=== PATIENT | male | born 1950 | race Two or more races ===

== ENCOUNTER 2023-04-30 21:43 | Inpatient (IN) | payer MEDICAID ==
[~2023-04-30] VITALS: Ht 172.7 cm; Wt 73.5 kg
[2023-04-30 23:29] LABS: BASOPHILS % (AUTO) 0.1 % (0.0-2.0); EOSINOPHILS # (AUTO) 0.1 K/uL (0.0-0.7); EOSINOPHILS % (AUTO) 0.4 % (0.0-6.0); HEMATOCRIT 36 % (39-51); LYMPHOCYTES # (AUTO) 0.8 K/uL (0.8-4.8); LYMPHOCYTES % (AUTO) 6.5 % (20.0-44.0); MEAN CORPUSCULAR HEMOGLOBIN 29 PG (26.0-33.0); MEAN CORPUSCULAR HGB CONC 33 g/dl (31.0-36.0); MEAN CORPUSCULAR VOLUME 86 fL (80-96); MONOCYTES # (AUTO) 1.1 K/uL (0.1-1.30); MONOCYTES % (AUTO) 8.9 % (2.0-12.0); NEUTROPHILS # (AUTO) 10.6 K/uL (1.8-8.9); NEUTROPHILS % (AUTO) 84.1 % (43.0-81.0); PLATELET COUNT (AUTO) 187 K/uL (150-450); RED BLOOD CELL COUNT(AUTO) 4.18 MIL/uL (4.5-6.0); RED CELL DISTRIBUTION WIDTH 14.2 % (11.5-15.0); WHITE BLOOD COUNT (AUTO) 12.6 K/uL (4.3-11.0)
[2023-04-30 23:30] LABS: APPEARANCE,URINE CLOUDY (CLEAR); BILIRUBIN,URINE NEGATIVE (NEGATIVE); BLOOD, URINE 2+ Ery/uL (NEGATIVE); COLOR,URINE YELLOW (YELLOW); KETONES,URINE 1+ mg/dL (NEGATIVE); LEUKOCYTE ESTERASE ,URINE 2+ (NEGATIVE); NITRITE, URINE POSITIVE (NEGATIVE); PROTEIN,URINE 2+ mg/dl (NEGATIVE); UGLUCOSE 2+ mg/dL (NEGATIVE)
[2023-04-30 23:48] LABS: ALANINE AMINOTRANSFERASE 17 U/L (12-78); ALKALINE PHOSPHATASE 96 U/L (46-116); ASPARTATE AMINOTRANSFERASE 7 U/L (15-37); BILIRUBIN,DIRECT 0.2 mg/dL (0.0-0.2); BILIRUBIN,TOTAL 0.8 mg/dL (0.2-1.0); CARBON DIOXIDE 28 mmol/L (21-32); CHLORIDE 96 mmol/L (98-107); CREATININE 0.9 mg/dL (0.6-1.3); GLUCOSE 307 mg/dL (74-106); POTASSIUM 3.7 mmol/L (3.5-5.1); SODIUM SERUM 131 mmol/L (136-145); TOTAL PROTEIN, SERUM 6.9 g/dL (6.4-8.2); UREA NITROGEN, BLOOD 8 mg/dL (7-18)
[2023-05-01] MEDS ORDERED: ASPIRIN 325 MG TABLET ONE (00:15)
[2023-05-01] MEDS ORDERED: CEFTRIAXONE 1GM BAG (ER ONLY) 50 ML IV ONE (00:15)
[2023-05-01] MEDS: CEFTRIAXONE 1GM BAG (ER ONLY) 1 GM/50 ML PIGGYBACK IV ONE (00:16)
[2023-05-01] MEDS: ASPIRIN 325 MG TABLET PO ONE (00:16)
[2023-05-01 00:21] LABS: ADD URINE CULTURE YES; BACTERIA,URINE 4+ /HPF (None Seen); MUCUS,URINE Many /LPF (None Seen); SQUAMOUS EPITHELIAL CELL,UR None Seen /HPF (None Seen); WBC,URINE 21-50 /HPF (0-3)
[2023-05-01] MEDS ORDERED: Z GUARD REMEDY 4 OZ OINT TP PRN (00:30)
[2023-05-01] MEDS ORDERED: ZOLPIDEM TARTRATE 5 MG TABLET PO PRN (00:30)
[2023-05-01] MEDS ORDERED: ONDANSETRON HCL/PF 4 MG/2 ML VIAL IVP PRN (00:30)
[2023-05-01] MEDS ORDERED: MAG HYDROX/AL HYDROX/SIMETH 30 ML UDC PO PRN (00:30)
[2023-05-01 09:30] VITALS: BP 139/85; TEMP 99.1; O2SAT 96
[2023-05-01 10:13] LABS: THYROID STIMULATING HORMONE 0.957 uIU/mL (0.358-3.74)
[2023-05-01] MEDS ORDERED: SITA1TAB2 PO (10:54)
[2023-05-01] MEDS ORDERED: [UNRECOGNIZED DRUG - OTHER] PO (10:54)
[2023-05-01] MEDS ORDERED: TAMS-12 PO (10:54)
[2023-05-01] MEDS ORDERED: OMEP20CA15 PO (10:54)
[2023-05-01] MEDS ORDERED: ASPI-1420 PO (10:54)
[2023-05-01] MEDS: ASPIRIN 81 MG TAB.CHEW PO SCH (11:12)
[2023-05-01 13:00] VITALS: BP 141/77; TEMP 99; O2SAT 95
[2023-05-01] MEDS ORDERED: SITA1TAB6 PO (13:57)
[2023-05-01] MEDS ORDERED: [UNRECOGNIZED DRUG - OTHER] PO (13:57)
[2023-05-01] MEDS ORDERED: DEXTROSE 50%-WATER 50 ML DISP.SYRIN IV PRN (14:00)
[2023-05-01] MEDS: BLOOD SUGAR DIAGNOSTIC 1 EACH STRIP IN SCH (14:59)
[2023-05-01] MEDS: INSULIN REGULAR, HUMAN 100 UNIT/ML 3 ML VIAL SQ PRN (15:30)
[2023-05-01 16:00] VITALS: BP 139/79; TEMP 98.6; O2SAT 95
[2023-05-01] MEDS: ACETAMINOPHEN 325 MG TABLET PO PRN (18:45)
[2023-05-01 20:00] VITALS: BP 127/85; TEMP 99.5; O2SAT 95
[2023-05-01] MEDS: IV NS 0.9% 1,000 ML IV PRN (20:17)
[2023-05-01] MEDS: CEFTRIAXONE 1 G in IV D5W 50 ML IV SCH (20:30)
[2023-05-01] MEDS: *INSULIN REGULAR(HUMULIN R)HUM 100 UNIT/ML VIAL SQ PRN (23:40)
[2023-05-02] VITALS: BP_SYST 110; BP_SYST 133; BP_DIAS 64; BP_DIAS 78; TEMP 98.8; O2SAT 94; O2SAT 95
[2023-05-02 07:00] VITALS: BP 128/79; TEMP 98.6; O2SAT 94
[2023-05-02 07:21] LABS: BASOPHILS % (AUTO) 0.2 % (0.0-2.0); EOSINOPHILS % (AUTO) 0.4 % (0.0-6.0); HEMATOCRIT 37 % (39-51); HEMOGLOBIN 12.7 g/dL (13.5-17.5); LYMPHOCYTES % (AUTO) 10.6 % (20.0-44.0); MEAN CORPUSCULAR HEMOGLOBIN 29 PG (26.0-33.0); MEAN CORPUSCULAR HGB CONC 34 g/dl (31.0-36.0); MEAN CORPUSCULAR VOLUME 83 fL (80-96); MONOCYTES # (AUTO) 1.1 K/uL (0.1-1.30); NEUTROPHILS # (AUTO) 7.7 K/uL (1.8-8.9); NEUTROPHILS % (AUTO) 77.8 % (43.0-81.0); PLATELET COUNT (AUTO) 201 K/uL (150-450); RED BLOOD CELL COUNT(AUTO) 4.46 MIL/uL (4.5-6.0); RED CELL DISTRIBUTION WIDTH 14.1 % (11.5-15.0); WHITE BLOOD COUNT (AUTO) 9.9 K/uL (4.3-11.0)
[2023-05-02 07:43] LABS: ALANINE AMINOTRANSFERASE 20 U/L (12-78); ALBUMIN 2.7 g/dL (3.4-5.0); ALKALINE PHOSPHATASE 88 U/L (46-116); ASPARTATE AMINOTRANSFERASE 12 U/L (15-37); BILIRUBIN,TOTAL 0.5 mg/dL (0.2-1.0); CALCIUM, SERUM 8.6 mg/dL (8.5-10.1); CARBON DIOXIDE 25 mmol/L (21-32); CHLORIDE 97 mmol/L (98-107); GLUCOSE 315 mg/dL (74-106); MAGNESIUM 1.5 mg/dL (1.8-2.4); PHOSPHORUS 3.5 mg/dL (2.5-4.9); POTASSIUM 3.7 mmol/L (3.5-5.1); SODIUM SERUM 132 mmol/L (136-145); TOTAL PROTEIN, SERUM 6.6 g/dL (6.4-8.2); UREA NITROGEN, BLOOD 10 mg/dL (7-18)
[2023-05-02 07:57] LABS: CHOLESTEROL 166 mg/dL (<200); HDL CHOLESTEROL 56 mg/dL (40-60); LDL 88 mg/dL (0-99); THYROID STIMULATING HORMONE 1.557 uIU/mL (0.358-3.74); TRIGLYCERIDES 83 mg/dL (30-150); URIC ACID 3.7 mg/dL (2.6-7.2)
[2023-05-02] MEDS: TAMSULOSIN 0.4 MG CAP.SR.24H PO SCH (08:19)
[2023-05-02] MEDS: LOSARTAN POTASSIUM 50 MG TABLET PO SCH (08:20)
[2023-05-02] MEDS: PANTOPRAZOLE 40 MG TABLET.DR PO SCH (08:20)
[2023-05-02] MEDS ORDERED: ASPIRIN EC 81 MG TABLET.DR PO SCH (09:00)
[2023-05-02] MEDS: ATORVASTATIN 40 MG TABLET PO SCH (09:33)
[2023-05-02] MEDS: MAGNESIUM OXIDE 400 MG TABLET PO ONE (11:55)
[2023-05-02 13:00] VITALS: BP 125/76; TEMP 98.1; O2SAT 97
[2023-05-02] MEDS: SOD FERRIC GLUC 125 MG in IV NS 0.9% 100 ML IV SCH (14:05)
[2023-05-02 16:00] VITALS: BP 114/71; TEMP 98.6; O2SAT 95
[2023-05-02 20:00] VITALS: BP 144/80; TEMP 98.1; O2SAT 94
[2023-05-03] VITALS: BP 138/54; TEMP 98.3; O2SAT 94
[2023-05-03 04:00] VITALS: BP 166/92; TEMP 98.6; O2SAT 94
[2023-05-03] MEDS: HYDROMORPHONE 1 MG/1 ML DISP.SYRIN IV ONE (06:19)
[2023-05-03 06:39] LABS: BASOPHILS % (AUTO) 0.2 % (0.0-2.0); EOSINOPHILS % (AUTO) 0.3 % (0.0-6.0); HEMATOCRIT 37 % (39-51); HEMOGLOBIN 12.7 g/dL (13.5-17.5); LYMPHOCYTES # (AUTO) 0.5 K/uL (0.8-4.8); LYMPHOCYTES % (AUTO) 4.9 % (20.0-44.0); MEAN CORPUSCULAR HEMOGLOBIN 29 PG (26.0-33.0); MEAN CORPUSCULAR HGB CONC 34 g/dl (31.0-36.0); MEAN CORPUSCULAR VOLUME 84 fL (80-96); MONOCYTES # (AUTO) 0.7 K/uL (0.1-1.30); MONOCYTES % (AUTO) 7.6 % (2.0-12.0); NEUTROPHILS # (AUTO) 8.2 K/uL (1.8-8.9); PLATELET COUNT (AUTO) 205 K/uL (150-450); RED BLOOD CELL COUNT(AUTO) 4.45 MIL/uL (4.5-6.0); RED CELL DISTRIBUTION WIDTH 14.1 % (11.5-15.0); WHITE BLOOD COUNT (AUTO) 9.4 K/uL (4.3-11.0)
[2023-05-03 07:04] LABS: CALCIUM, SERUM 8.9 mg/dL (8.5-10.1); CREATININE 1.1 mg/dL (0.6-1.3); MAGNESIUM 1.6 mg/dL (1.8-2.4); PHOSPHORUS 3.4 mg/dL (2.5-4.9); POTASSIUM 3.6 mmol/L (3.5-5.1)
[2023-05-03] MEDS: MAGNESIUM OXIDE 400 MG TABLET PO ONE (09:25)
[2023-05-03 16:31] VITALS: BP 194/124; TEMP 97.8; O2SAT 96
[2023-05-03] MEDS: MAGNESIUM HYDROXIDE 30 ML UDC PO PRN (21:10)
[2023-05-03] MEDS: HYDROCODONE/APAP 10/325MG TABLET PO PRN (21:11)
[2023-05-04 00:21] VITALS: BP 175/94; TEMP 99; O2SAT 99
[2023-05-04] MEDS: CLONIDINE HCL 0.1 MG TABLET PO PRN (00:37)
[2023-05-04 04:26] VITALS: BP 154/99; TEMP 99.3; O2SAT 96
[2023-05-04 07:10] LABS: BASOPHILS % (AUTO) 0.3 % (0.0-2.0); EOSINOPHILS # (AUTO) 0.1 K/uL (0.0-0.7); EOSINOPHILS % (AUTO) 1.2 % (0.0-6.0); HEMATOCRIT 33 % (39-51); HEMOGLOBIN 11.4 g/dL (13.5-17.5); LYMPHOCYTES % (AUTO) 9.2 % (20.0-44.0); MEAN CORPUSCULAR HEMOGLOBIN 29 PG (26.0-33.0); MEAN CORPUSCULAR HGB CONC 35 g/dl (31.0-36.0); MEAN CORPUSCULAR VOLUME 83 fL (80-96); MONOCYTES # (AUTO) 1.3 K/uL (0.1-1.30); MONOCYTES % (AUTO) 12.8 % (2.0-12.0); NEUTROPHILS % (AUTO) 76.5 % (43.0-81.0); PLATELET COUNT (AUTO) 217 K/uL (150-450); RED BLOOD CELL COUNT(AUTO) 3.99 MIL/uL (4.5-6.0); RED CELL DISTRIBUTION WIDTH 13.9 % (11.5-15.0); WHITE BLOOD COUNT (AUTO) 10.4 K/uL (4.3-11.0)
[2023-05-04 07:23] LABS: CALCIUM, SERUM 8.6 mg/dL (8.5-10.1); CREATININE 1.2 mg/dL (0.6-1.3); PHOSPHORUS 3.8 mg/dL (2.5-4.9); POTASSIUM 3.7 mmol/L (3.5-5.1)
[2023-05-04 08:30] VITALS: BP 169/91; TEMP 98.2; O2SAT 95
[2023-05-04 12:06] VITALS: BP 169/91
[2023-05-04] MEDS: VALSARTAN 80 MG TABLET PO SCH (12:06)
[2023-05-04] MEDS ORDERED: SULF1TAB48 PO (12:16)
== END 2023-05-04 20:25 | disposition home or self-care (01) | DRG 466 ==
LOC: ER 21:48 → TRANSITION 05-01 05:31 → TELE 05-01 08:29
PROVIDERS: ADMIT Nurse Practitioner Acute Care; ATTEND Nurse Practitioner Acute Care
DX: T83.511A Infection and inflammatory reaction due to indwelling urethral catheter, initial encounter (principal); I21.A1 Myocardial infarction type 2; E87.1 Hypo-osmolality and hyponatremia; N13.6 Pyonephrosis; N30.80 Other cystitis without hematuria; E11.65 Type 2 diabetes mellitus with hyperglycemia; D50.9 Iron deficiency anemia, unspecified; D64.9 Anemia, unspecified; I10 Essential (primary) hypertension; I25.10 Atherosclerotic heart disease of native coronary artery without angina pectoris; N40.0 Benign prostatic hyperplasia without lower urinary tract symptoms; Z95.5 Presence of coronary angioplasty implant and graft; Z79.84 Long term (current) use of oral hypoglycemic drugs; Z79.82 Long term (current) use of aspirin; Z79.899 Other long term (current) drug therapy; Y84.6 Urinary catheterization as the cause of abnormal reaction of the patient, or of later complication, without mention of misadventure at the time of the procedure; Y92.009 Unspecified place in unspecified non-institutional (private) residence as the place of occurrence of the external cause; Z91.148 Patient's other noncompliance with medication regimen for other reason; Z79.4 Long term (current) use of insulin; R79.89 Other specified abnormal findings of blood chemistry; T83.021A Displacement of indwelling urethral catheter, initial encounter
CPT/HCPCS: 36415; 70450-TC; 71045-TC; 80048-TC; 80053-TC; 80061-TC; 80076-TC; 81001; 82728-TC; 82962-TC; 83540-TC; 83735-TC; 84100-TC; 84439-TC; 84443-TC; 84484-TC; 84550-TC; 85025-TC; 87086-TC; 93307-TC; A4223; A6253; G0378; J0696; J1170; J1815; J2405; J2916; J7030; J7060